=== PATIENT | female | born 1955 | race Caucasian/White ===

== ENCOUNTER 2019-04-04 13:37 | Inpatient (IN) | payer OTHER ==
[~2019-04-04] VITALS: Ht 170.2 cm; Wt 61.3 kg
--- NOTE | 2019-04-04 15:11 | HP ---
ADMIT DATE: 04/04/2019 CHIEF COMPLAINT: Right arm and leg weakness. HISTORY OF PRESENT ILLNESS: This 63-year-old white female was seen in the office on the day of admission after experiencing symptoms in the morning. She woke up and felt fine and leaned over and felt dizzy in a vertiginous type of way and sat down for a while. Shortly after that, she noticed she was having some weakness in both the right arm and right leg, though she was able to move them and feel them but was not able to stand and bear weight. There was no speech deficit, headache, recent TIA symptoms, head injury, or any other symptoms. After about 15-30 minutes, the dizziness started to subside followed shortly after by the weakness in both arm and leg and she feels better at this time. This has never occurred to her prior to this. MEDICATIONS: She takes no meds. PAST SURGICAL HISTORY: Surgically, she has had a right mastectomy, ovarian cystectomy, tubal ligation, and appendectomy. ALLERGIES: NO KNOWN DRUG ALLERGIES ASIDE FROM CODEINE, DARVOCET, AND SULFA. SOCIAL HISTORY: She is about half a pack a day smoker. She drinks only modestly. She is . She is physically active. FAMILY HISTORY: Father has had bladder cancer. Brother has had melena. Otherwise, unremarkable. Mother of a stroke. REVIEW OF SYSTEMS: No other specific complaints recently. OBJECTIVE: ENT: All within normal limits. NECK: Revealed no carotid bruits, nodes, masses, or thyroid enlargement. LUNGS: Clear without tachypnea. CARDIOVASCULAR: Regular rate. No irregular beat, murmur, or tachycardia. BREASTS: Not examined. ABDOMEN: Soft, benign, and nontender. EXTREMITIES: Good pedal and radial pulses. No joint or skin lesions or nail bed findings. NEUROLOGIC: She moves all extremities. She walks normally. Cerebellar function appears normal. Strength in both arms and legs appears to be normal and equal. DTRs are normal. There are no upper motor neuron signs. Speech and mental status was normal as well as gait. RECTAL AND GENITOURINARY: Deferred. ASSESSMENT: Transient ischemic attack, suspect more basal ganglia given the lack of speech deficit. Main risk factor is tobacco use. PLAN: Admit for aspirin therapy, echo, carotid Doppler, CT head, and neurologic consultation. THERESA JAUREGUI MD DR: Rodolfo JOB#: [id number] / [id number]
[2019-04-04 15:25] VITALS: BP 95/64
[2019-04-04] MEDS ORDERED: ASPIRIN 325 MG TABLET PO SCH (16:00)
[2019-04-04 16:19] LABS: BASO # 0.1 x10^3/uL (0.0-0.2); BASO % 1 % (0-3); EOS # 0.1 x10^3/uL (0.0-0.7); EOS % 1 % (0-3); HEMATOCRIT 38.5 % (36.0-47.0); LYMPH # 1.8 x10^3/uL (1.0-4.8); LYMPH % 37 % (24-48); MEAN CORPUSCULAR HEMOGLOBIN 31 pg (25-35); MEAN CORPUSCULAR HGB CONC 34 g/dL (31-37); MEAN CORPUSCULAR VOLUME 92 fL (79-100); MONO # 0.4 x10^3/uL (0.0-1.1); MONO % 8 % (0-9); NEUT # 2.6 x10^3/uL (1.8-7.7); NEUT % 52 % (31-73); PLATELET COUNT 272 x10^3/uL (140-400); RED CELL DISTRIBUTION WIDTH 12.8 % (11.5-14.5); WHITE BLOOD COUNT 4.9 x10^3/uL (4.0-11.0)
[2019-04-04 16:36] LABS: ALBUMIN 3.7 g/dL (3.4-5.0); ALBUMIN/GLOBULIN RATIO 1.1 (1.0-1.7); CALCIUM 8.9 mg/dL (8.5-10.1); CREATININE 0.7 mg/dL (0.6-1.0); GFR 84.5; POTASSIUM 4.2 mmol/L (3.5-5.1); TOTAL BILIRUBIN 0.3 mg/dL (0.2-1.0)
--- NOTE | 2019-04-04 16:39 | RAD ---
CT HEAD WITHOUT CONTRAST 04/04/2019 3:26 PM Indication: Transient ischemic attack right-sided weakness. Comparison: None Procedure: Multidetector CT imaging of the head was performed without the administration of contrast. Findings: There is no evidence of acute intracranial hemorrhage. There is no evidence of acute territorial infarction. Please note that CT is limited for evaluation of acute ischemia. No mass effect or midline shift is identified . The ventricles and basilar cisterns have an appropriate appearance. No abnormal extra-axial fluid collections are seen. No acute osseous changes are identified. Impression: No evidence of acute intracranial abnormality CT DOSING PQRS STATEMENT: One or more of the following individualized dose reduction techniques were utilized for this examination: 1. Automated exposure control 2. Adjustment of the mA and/or kV according to patient size 3. Use of iterative reconstruction technique Electronically signed by: Dick Daniels MD (04/04/2019 4:33 PM) [facility]
--- NOTE | 2019-04-04 18:30 | PDOC2 ---
NEUROLOGY CONSULT Date of Admission Date of Admission DATE: 04/04/19 TIME: 18:19 Reason for Consult Reason for Consult: IMPRESSION: CVA syndrome. Right side weakness on 04/04/19. Dizziness. HLD. Smoking. RECOMMENDATIONS/PLAN: ASA 325 mg daily. Lipitor 20 mg HS. Brain MRI w/o contrast. Carotid A US +Doppler. Echo + Bubble study. Lab: see orders. HISTORY OF THE PRESENT ILLNESS: This is a 63-year-old white female with above medical diseases developed symptoms of right UE and LE weakness on 04/04/19. She was seen in her PCP's clinic and was sent to [facility] for further stroke evaluation. She stated she woke up and felt fine and leaned over and felt dizzy in a vertiginous type of way and sat down for a while. Shortly after that, she noticed she was having some weakness in both the right arm and right leg, though she was able to move them and feel them but was not able to stand and bear weight. After about 15-30 minutes, the dizziness started to subside, and her weakness lasted for > 30 minutes. PAST MEDICAL HISTORY: Please see above. PAST SURGICAL HISTORY: Right mastectomy, ovarian, cystectomy, tubal ligation, and appendectomy. ALLERGIES: CODEINE, DARVOCET, AND SULFA. SOCIAL HISTORY: Lives at home. She smokes half a pack a day for about 30 years. She drinks only occasionally. FAMILY HISTORY: Her father has had bladder cancer. Brother has melenoma. Mother of a stroke. MEDICATIONS: Refer to [facility] REVIEW OF SYSTEMS: Constitutional: No malnutrition, cachexia. Head: No recent traumatic brain or head injury. Skin: No edema, or rash. Ear: No infection. Eyes: No vision loss or color blindness. Nose: No bleeding or purulent discharges. Hearing: No hearing decrease. Neck: No injury. Breast: No history of cancer, masses,or discharges. Cardiac: HLD. Pulmonary: Smoking.. GI: No GI ulcer, GI bleeding. Urinary/genital: UTI. Endocrinologic: No cousin face, craniofacial dysmorphism, polydactyly. Skeletomuscular: No muscular atrophy, deformity. Neurological: see HP. Psychiatric: Denies drug use/abuse. Otherwise, not [id number] review of systems. PHYSICAL EXAMINATION: General appearance is in subacute distress. HEENT: Normocephalic and nontraumatic. Eyes, nose, ears, and throat are unremarkable. Neck is supple. No lymphadenopathy. No crepitus. Cardiovascular: S1, S2, regular rate and rhythm. Pulmonary: Clear to auscultation bilaterally. Abdomen: Bowel sounds are positive. Abdomen is soft, nontender, and nondistended. Extremities: No rash, lesions, or edema. No restriction of range of motion NEUROLOGICAL EXAMINATION: Alert Oriented to time, place and person. PERRL. EOMI. CN: no focal findings. Muscle tone: within normal. Muscle strength: 5 DTR: 2 Plantar reflex: Flexor response bilaterally Gait: not examined in bed. Sensory exam: no abnormal findings. No cerebellar signs elicited. F-T-N test accurate. Current Medications Current Medications Current Medications Aspirin (Francisco Javier Aspirin) 325 mg DAILYWBKFT PO ; Start 04/04/19 at 16:00; Status Cancel Aspirin (Francisco Javier Aspirin) 325 mg DAILYWBKFT PO ; Start 04/05/19 at 08:00 Atorvastatin Calcium (Lipitor) 20 mg QHS PO ; Start 04/04/19 at 21:00 Allergies Allergies: Allergies Coded Allergies Type Severity Reaction Last Updated Verified Sulfa (Sulfonamide Antibiotics) Allergy Intermediate 04/04/19 Yes codeine Allergy Intermediate 04/04/19 Yes propoxyphene Allergy Intermediate 04/04/19 Yes ROS Review of System The patient denies any associated fevers, chills, headache, ear pain, rhinorrhea, sore throat, stiff neck, productive cough, chest pain, shortness of breath, back or flank pain, abdominal pain, nausea, vomiting, diarrhea, constipation, dysuria, rash, numbness, weakness, tingling, incontinence, diffic ulty ambulating, or diaphoresis. Physical Exam Physical Exam General: Well developed, well nourished, no acute distress, well appearing HEENT: Pupils equally round and reactive to light, EOMI, no discharge, normal conjunctiva Neck: Supple, no nuchal rigidity, no JVD, trachea midline, no tenderness Cardiac: RRR, no murmurs, no gallops, no rubs Chest/Lungs: CTAB, no wheeze, no rhonchi, no crackles Abdomen: soft, non-distended, no guarding, no peritoneal signs, non-tender Back: No tenderness Extremities: no edema, pulses intact, non-tender,capillary refill <3 sec bilateral upper and lower extremities, Neuro: Alert and oriented x 4, no focal deficits, normal speech Vitals Vitals: Vital Signs Date Time Temp Pulse Resp B/P (MAP) Pulse Ox O2 Delivery O2 Flow Rate FiO2 04/04/19 16:00 Room Air 04/04/19 15:25 98.2 78 16 95/64 (74) 99 98.2 Labs Labs Laboratory Tests Test 04/04/19 16:00 White Blood Count 4.9 x10^3/uL (4.0-11.0) Red Blood Count 4.20 x10^6/uL (3.50-5.40) Hemoglobin 13.0 g/dL (12.0-15.5) Hematocrit 38.5 % (36.0-47.0) Mean Corpuscular Volume 92 fL (79-100) Mean Corpuscular Hemoglobin 31 pg (25-35) Mean Corpuscular Hemoglobin Concent 34 g/dL (31-37) Red Cell Distribution Width 12.8 % (11.5-14.5) Platelet Count 272 x10^3/uL (140-400) Neutrophils (%) (Auto) 52 % (31-73) Lymphocytes (%) (Auto) 37 % (24-48) Monocytes (%) (Auto) 8 % (0-9) Eosinophils (%) (Auto) 1 % (0-3) Basophils (%) (Auto) 1 % (0-3) Neutrophils # (Auto) 2.6 x10^3/uL (1.8-7.7) Lymphocytes # (Auto) 1.8 x10^3/uL (1.0-4.8) Monocytes # (Auto) 0.4 x10^3/uL (0.0-1.1) Eosinophils # (Auto) 0.1 x10^3/uL (0.0-0.7) Basophils # (Auto) 0.1 x10^3/uL (0.0-0.2) Erythrocyte Sedimentation Rate 0 (0-25) Sodium Level 140 mmol/L (136-145) Potassium Level 4.2 mmol/L (3.5-5.1) Chloride Level 103 mmol/L (98-107) Carbon Dioxide Level 31 mmol/L (21-32) Anion Gap 6 (6-14) Blood Urea Nitrogen 12 mg/dL (7-20) Creatinine 0.7 mg/dL (0.6-1.0) Estimated GFR (Cockcroft-Gault) 84.5 BUN/Creatinine Ratio 17 (6-20) Glucose Level 133 mg/dL (70-99) Calcium Level 8.9 mg/dL (8.5-10.1) Total Bilirubin 0.3 mg/dL (0.2-1.0) Aspartate Amino Transf (AST/SGOT) 16 U/L (15-37) Alanine Aminotransferase (ALT/SGPT) 16 U/L (14-59) Alkaline Phosphatase 73 U/L (46-116) Total Protein 7.0 g/dL (6.4-8.2) Albumin 3.7 g/dL (3.4-5.0) Albumin/Globulin Ratio 1.1 (1.0-1.7) Triglycerides Level 92 mg/dL (0-150) Cholesterol Level 215 mg/dL (0-200) LDL Cholesterol, Calculated 143 mg/dL (0-100) VLDL Cholesterol, Calculated 18 mg/dL (0-40) Non-HDL Cholesterol Calculated 161 mg/dL (0-129) HDL Cholesterol 54 mg/dL (40-60) Cholesterol/HDL Ratio 4.0 Thyroid Stimulating Hormone (TSH) 0.959 uIU/mL (0.358-3.74) Laboratory Tests Test 04/04/19 16:00 White Blood Count 4.9 x10^3/uL (4.0-11.0) Red Blood Count 4.20 x10^6/uL (3.50-5.40) Hemoglobin 13.0 g/dL (12.0-15.5) Hematocrit 38.5 % (36.0-47.0) Mean Corpuscular Volume 92 fL (79-100) Mean Corpuscular Hemoglobin 31 pg (25-35) Mean Corpuscular Hemoglobin Concent 34 g/dL (31-37) Red Cell Distribution Width 12.8 % (11.5-14.5) Platelet Count 272 x10^3/uL (140-400) Neutrophils (%) (Auto) 52 % (31-73) Lymphocytes (%) (Auto) 37 % (24-48) Monocytes (%) (Auto) 8 % (0-9) Eosinophils (%) (Auto) 1 % (0-3) Basophils (%) (Auto) 1 % (0-3) Neutrophils # (Auto) 2.6 x10^3/uL (1.8-7.7) Lymphocytes # (Auto) 1.8 x10^3/uL (1.0-4.8) Monocytes # (Auto) 0.4 x10^3/uL (0.0-1.1) Eosinophils # (Auto) 0.1 x10^3/uL (0.0-0.7) Basophils # (Auto) 0.1 x10^3/uL (0.0-0.2) Erythrocyte Sedimentation Rate 0 (0-25) Sodium Level 140 mmol/L (136-145) Potassium Level 4.2 mmol/L (3.5-5.1) Chloride Level 103 mmol/L (98-107) Carbon Dioxide Level 31 mmol/L (21-32) Anion Gap 6 (6-14) Blood Urea Nitrogen 12 mg/dL (7-20) Creatinine 0.7 mg/dL (0.6-1.0) Estimated GFR (Cockcroft-Gault) 84.5 BUN/Creatinine Ratio 17 (6-20) Glucose Level 133 mg/dL (70-99) Calcium Level 8.9 mg/dL (8.5-10.1) Total Bilirubin 0.3 mg/dL (0.2-1.0) Aspartate Amino Transf (AST/SGOT) 16 U/L (15-37) Alanine Aminotransferase (ALT/SGPT) 16 U/L (14-59) Alkaline Phosphatase 73 U/L (46-116) Total Protein 7.0 g/dL (6.4-8.2) Albumin 3.7 g/dL (3.4-5.0) Albumin/Globulin Ratio 1.1 (1.0-1.7) Triglycerides Level 92 mg/dL (0-150) Cholesterol Level 215 mg/dL (0-200) LDL Cholesterol, Calculated 143 mg/dL (0-100) VLDL Cholesterol, Calculated 18 mg/dL (0-40) Non-HDL Cholesterol Calculated 161 mg/dL (0-129) HDL Cholesterol 54 mg/dL (40-60) Cholesterol/HDL Ratio 4.0 Thyroid Stimulating Hormone (TSH) 0.959 uIU/mL (0.358-3.74) JESSICA AMARO MD Apr 04, 2019 18:30
[2019-04-04 19:15] VITALS: BP 111/66
[2019-04-04] MEDS ORDERED: ATORVASTATIN CALCIUM 20 MG TABLET PO SCH (21:00)
[2019-04-04 23:15] VITALS: BP 106/64
[2019-04-05] MEDS ORDERED: ACETAMINOPHEN 500 MG TABLET PO PRN (00:30)
[2019-04-05 03:15] VITALS: BP 112/71
[2019-04-05 05:09] LABS: BARBITURATES NEG (NEG); BENZODIAZEPINES NEG (NEG); CANNABINOIDS NEG (NEG); COCAINE NEG (NEG); METHADONE NEG (NEG); OPIATES NEG (NEG); PHENCYCLIDINE NEG (NEG)
--- NOTE | 2019-04-05 05:09 | RAD ---
DOPPLER CAROTID BILAT Clinical Indication: TIA.. Procedure: Pulsed wave and color-flow duplex imaging was utilized to evaluate the extracranial carotid arteries. Comparison: None. Findings: RIGHT SIDE: Mild atherosclerotic plaque on fleming-scale images. Distal CCA peak systolic velocity 81 cm/sec. ICA peak systolic velocity 64 cm/sec. The right ICA/CCA ratio is 0.8. Flow within the right vertebral artery and right ECA is directed antegrade. LEFT SIDE: Mild atherosclerotic plaque on fleming-scale images. Distal CCA peak systolic velocity 76 cm/sec. ICA peak systolic velocity 60 cm/sec. The left ICA/CCA ratio is 0.8. Flow within the left vertebral artery and left ECA is directed antegrade. Carotid legend: CCA = common carotid artery ICA = internal carotid artery ECA = external carotid artery IMPRESSION: Less than 50 percent stenosis bilaterally. Electronically signed by: Omar Nguyen DO (04/05/2019 5:06 AM) [id number]
[2019-04-05 05:13] LABS: AMPHETAMINE/METHAMPHETAMINE NEG (NEG)
[2019-04-05 07:00] VITALS: BP 110/63
[2019-04-05] MEDS ORDERED: ASPIRIN 325 MG TABLET PO SCH (08:00)
--- NOTE | 2019-04-05 08:10 | PDOC ---
Provider Note Provider Note [id number] THERESA JAUREGUI MD Apr 05, 2019 08:10
--- NOTE | 2019-04-05 08:27 | DS ---
DATE OF DISCHARGE: 04/05/2019 HOSPITAL SUMMARY: This is a 63-year-old white female who came into the office on the day of admission with dizziness associated with 30 minutes or so of right arm and right leg weakness without speech deficit. CBC, sed rate and chemistry profile unremarkable except for slightly elevated blood sugar of 133. Cholesterol was 215, LDL 143 and HDL 54. TSH was normal. Urine drug screen was negative. Carotid Doppler studies and CT scan of the head were normal. MRI of the head and echocardiogram are pending at this time. She was treated as a TIA with aspirin and atorvastatin was started as well and Dr. Montero saw in consultation. She will be discharged after the MRI report proved to be unremarkable and followed up as an outpatient. FINAL DIAGNOSES: 1. Transient ischemic attack. 2. Hyperlipidemia, mild. 3. Chronic tobacco abuse. 4. Hyperglycemia. OPERATIONS, PROCEDURES, COMPLICATIONS: None. CONSULTATIONS: Dr. Montero. DISPOSITION: Aspirin 81 mg daily and atorvastatin 20 mg daily. Complete avoidance of tobacco was encouraged. Regular high fiber, low cholesterol diet. Office followup in 1 week and we will follow her statin response and any further symptoms required. We will do a hemoglobin A1c regarding mildly elevated blood sugar, but highly unlikely this patient is even prediabetic. THERESA JAUREGUI MD DR: [place]/tyrone JOB#: [id number] / [id number]
--- NOTE | 2019-04-05 09:46 | CARD ---
MR#: [id number] Date of Study: 04/05/2019 Ordering Physician: THERESA JAUREGUI, Referring Physician: THERESA JAUREGUI Tech: Cheryl Mckeon RDCS APPROVED REPORT EXAM: Two-dimensional and M-mode echocardiogram with Doppler and color Doppler. Other Information Quality : AverageHR: 55bpm Rhythm : Bradycardia INDICATION CVA/TIA 2D DIMENSIONS Left Atrium(2D)3.2 (1.6-4.0cm)IVSd0.8 (0.7-1.1cm) Aortic Root(2D)2.8 (2.0-3.7cm)LVDd4.5 (3.9-5.9cm) LVOT Diameter1.9 (1.8-2.4cm)PWd0.9 (0.7-1.1cm) IVSs0.8 (0.8-1.2cm)LVDs3.2 (2.5-4.0cm) FS (%) 28.6 %PWs1.2 (0.8-1.2cm) SV51.8 mlLVEF(%)55.3 (>50%) Aortic Valve AoV Peak Tad.107.6cm/sAoV VTI21.6cm AO Peak GR.4.6mmHgLVOT Peak Tad.95.8cm/s LVOT VTI 21.28cmAO Mean GR.2mmHg SUKUMAR (VMAX)1.75ob6ELH (VTI)2.79cm2 Mitral Valve MV E Kulnvuns46.6cm/sMV DECEL [id number] MV A Voddkvku51.7cm/sMV IVN85ud E/A Ratio1.1MVA (PHT)3.27cm2 Tricuspid Valve TR P. Fujrnezl497ay/sRAP [id number] TR Peak Gr.74ysRfWERL29suMf LEFT VENTRICLE The left ventricle is normal size. There is normal left ventricular wall thickness. The left ventricu lar systolic function is normal and the ejection fraction is within normal range. The Ejection Fracti on is 55-60%. There is normal LV segmental wall motion. Transmitral Doppler flow pattern is Grade II- pseudonormal filling dynamics. RIGHT VENTRICLE The right ventricle is normal size. There is normal right ventricular wall thickness. The right ventr icular systolic function is normal. ATRIA The left atrium size is normal. The right atrium size is normal. The interatrial septum is intact wit h no evidence for an atrial septal defect or patent foramen ovale as noted on 2-D or Doppler imaging. AORTIC VALVE The aortic valve is normal in structure and function. The aortic valve is trileaflet. Doppler and Col or Flow revealed no significant aortic regurgitation. There is no significant aortic valvular stenosi s. There is no aortic valvular vegetation. MITRAL VALVE The mitral valve is normal in structure and function. There is no evidence of mitral valve prolapse. There is no mitral valve stenosis. Doppler and Color-flow revealed trace mitral regurgitation. TRICUSPID VALVE The tricuspid valve is normal in structure and function. Doppler and Color Flow revealed trace tricus pid regurgitation. The PA pressure was estimated at 24 mmHg. There is no tricuspid valve prolapse or vegetation. There is no tricuspid valve stenosis. PULMONIC VALVE The pulmonic valve is not well visualized. GREAT VESSELS The aortic root is normal in size. The ascending aorta is normal in size. The IVC is normal in size a nd collapses >50% with inspiration. PERICARDIAL EFFUSION There is no evidence of significant pericardial effusion. Critical Notification Critical Value: No <Conclusion> The left ventricle is normal size. The left ventricular systolic function is normal and the ejection fraction is within normal range. The Ejection Fraction is 55-60%. There is normal left ventricular wall thickness. There is no significant aortic valvular stenosis. Doppler and Color Flow revealed no significant aortic regurgitation. Doppler and Color-flow revealed trace mitral regurgitation. Doppler and Color Flow revealed trace tricuspid regurgitation. The PA pressure was estimated at 24 mmHg. Signed by : Emeka Adamson MD Electronically Approved : 04/05/2019 09:45:56
--- NOTE | 2019-04-05 10:28 | NUR ---
SS following for discharge planning. SS reviewed pt chart. Pt is from home with spouse and is currently on room air. SS will continue to follow for discharge planning.
[2019-04-05 11:00] VITALS: BP 98/53
--- NOTE | 2019-04-05 14:03 | PDOC ---
PROGRESS NOTES Assessment Assessment CVA syndrome. Right side weakness on 04/04/19. Dizziness. HLD. Smoking. No signs of acute large vessel stroke. RECOMMENDATIONS/PLAN: Continue ASA 325 mg daily. Continue Lipitor 20 mg HS. Brain MRI w/o contrast, pending reports. Smoking cessation. FU with PCP. Discussed with her at bedside on 04/05/19. HISTORY OF THE PRESENT ILLNESS: This is a 63-year-old white female with above medical diseases developed symptoms of right UE and LE weakness on 04/04/19. She was seen in her PCP's clinic and was sent to [facility] for further stroke evaluation. She stated she woke up and felt fine and leaned over and felt dizzy in a vertiginous type of way and sat down for a while. Shortly after that, she noticed she was having some weakness in both the right arm and right leg, though she was able to move them and feel them but was not able to stand and bear weight. After about 15-30 minutes, the dizziness started to subside, and her weakness lasted for > 30 minutes, then resolved. PAST MEDICAL HISTORY: Please see above. PAST SURGICAL HISTORY: Right mastectomy, ovarian, cystectomy, tubal ligation, and appendectomy. ALLERGIES: CODEINE, DARVOCET, AND SULFA. SOCIAL HISTORY: Lives at home. She smokes half a pack a day for about 30 years. She drinks only occasionally. FAMILY HISTORY: Her father has had bladder cancer. Brother has melenoma. Mother of a stroke. MEDICATIONS: Refer to MAR REVIEW OF SYSTEMS: Constitutional: No malnutrition, cachexia. Head: No recent traumatic brain or head injury. Skin: No edema, or rash. Ear: No infection. Eyes: No vision loss or color blindness. Nose: No bleeding or purulent discharges. Hearing: No hearing decrease. Neck: No injury. Breast: No history of cancer, masses,or discharges. Cardiac: HLD. Pulmonary: Smoking.. GI: No GI ulcer, GI bleeding. Urinary/genital: UTI. Endocrinologic: No cousin face, craniofacial dysmorphism, polydactyly. Skeletomuscular: No muscular atrophy, deformity. Neurological: see HP. Psychiatric: Denies drug use/abuse. Otherwise, not [id number] review of systems. PHYSICAL EXAMINATION: General appearance is in no acute distress. HEENT: Normocephalic and nontraumatic. Eyes, nose, ears, and throat are unremarkable. Neck is supple. No lymphadenopathy. No crepitus. Cardiovascular: S1, S2, regular rate and rhythm. Pulmonary: Clear to auscultation bilaterally. Abdomen: Bowel sounds are positive. Abdomen is soft, nontender, and nondistended. Extremities: No rash, lesions, or edema. No restriction of range of motion NEUROLOGICAL EXAMINATION: Alert Oriented to time, place and person. PERRL. EOMI. CN: no focal findings. Muscle tone: within normal. Muscle strength: 5 DTR: 2 Plantar reflex: Flexor response bilaterally Gait: At her baseline normal. Sensory exam: no abnormal findings. No cerebellar signs elicited. F-T-N test accurate. Objective Objective Vital Signs Date Time Temp Pulse Resp B/P (MAP) Pulse Ox O2 Delivery O2 Flow Rate FiO2 04/05/19 11:00 97.8 86 18 98/53 (68) 97 Room Air 97.8 Intake and Output 04/05/19 07:00 Intake Total 0 ml Output Total 200 ml Balance -200 ml Intake Oral 0 ml Output Urine Total 200 ml Vitals Signs Vitals VS - Last 72 Hours, by Label Date Time Temp Pulse Resp B/P (MAP) Pulse Ox O2 Delivery O2 Flow Rate FiO2 04/05/19 11:00 97.8 86 18 98/53 (68) 97 Room Air 97.8 04/05/19 08:00 Room Air 04/05/19 07:00 98.2 62 16 110/63 (79) 97 Room Air 98.2 04/05/19 03:15 98.3 53 16 112/71 (85) 98 Room Air 98.3 04/04/19 23:15 98.1 66 16 106/64 (78) 97 Room Air 98.1 04/04/19 20:00 Room Air 04/04/19 19:15 98.2 65 17 111/66 (81) 96 Room Air 98.2 04/04/19 16:00 Room Air 04/04/19 15:25 98.2 78 16 95/64 (74) 99 Room Air 98.2 Laboratory Laboratory Laboratory Tests Test 04/04/19 16:00 04/05/19 03:12 White Blood Count 4.9 x10^3/uL (4.0-11.0) Red Blood Count 4.20 x10^6/uL (3.50-5.40) Hemoglobin 13.0 g/dL (12.0-15.5) Hematocrit 38.5 % (36.0-47.0) Mean Corpuscular Volume 92 fL (79-100) Mean Corpuscular Hemoglobin 31 pg (25-35) Mean Corpuscular Hemoglobin Concent 34 g/dL (31-37) Red Cell Distribution Width 12.8 % (11.5-14.5) Platelet Count 272 x10^3/uL (140-400) Neutrophils (%) (Auto) 52 % (31-73) Lymphocytes (%) (Auto) 37 % (24-48) Monocytes (%) (Auto) 8 % (0-9) Eosinophils (%) (Auto) 1 % (0-3) Basophils (%) (Auto) 1 % (0-3) Neutrophils # (Auto) 2.6 x10^3/uL (1.8-7.7) Lymphocytes # (Auto) 1.8 x10^3/uL (1.0-4.8) Monocytes # (Auto) 0.4 x10^3/uL (0.0-1.1) Eosinophils # (Auto) 0.1 x10^3/uL (0.0-0.7) Basophils # (Auto) 0.1 x10^3/uL (0.0-0.2) Erythrocyte Sedimentation Rate 0 (0-25) Sodium Level 140 mmol/L (136-145) Potassium Level 4.2 mmol/L (3.5-5.1) Chloride Level 103 mmol/L (98-107) Carbon Dioxide Level 31 mmol/L (21-32) Anion Gap 6 (6-14) Blood Urea Nitrogen 12 mg/dL (7-20) Creatinine 0.7 mg/dL (0.6-1.0) Estimated GFR (Cockcroft-Gault) 84.5 BUN/Creatinine Ratio 17 (6-20) Glucose Level 133 mg/dL (70-99) Calcium Level 8.9 mg/dL (8.5-10.1) Total Bilirubin 0.3 mg/dL (0.2-1.0) Aspartate Amino Transf (AST/SGOT) 16 U/L (15-37) Alanine Aminotransferase (ALT/SGPT) 16 U/L (14-59) Alkaline Phosphatase 73 U/L (46-116) Total Protein 7.0 g/dL (6.4-8.2) Albumin 3.7 g/dL (3.4-5.0) Albumin/Globulin Ratio 1.1 (1.0-1.7) Triglycerides Level 92 mg/dL (0-150) Cholesterol Level 215 mg/dL (0-200) LDL Cholesterol, Calculated 143 mg/dL (0-100) VLDL Cholesterol, Calculated 18 mg/dL (0-40) Non-HDL Cholesterol Calculated 161 mg/dL (0-129) HDL Cholesterol 54 mg/dL (40-60) Cholesterol/HDL Ratio 4.0 Thyroid Stimulating Hormone (TSH) 0.959 uIU/mL (0.358-3.74) Urine Opiates Screen Neg (NEG) Urine Methadone Screen Neg (NEG) Urine Barbiturates Neg (NEG) Urine Phencyclidine Screen Neg (NEG) Urine Amphetamine/Methamphetamine Neg (NEG) Urine Benzodiazepines Screen Neg (NEG) Urine Cocaine Screen Neg (NEG) Urine Cannabinoids Screen Neg (NEG) Urine Ethyl Alcohol Neg (NEG) Medication Medications Current Medications Acetaminophen (Tylenol) 500 mg PRN Q6HRS PRN PO MILD PAIN / TEMP Last administered on 04/05/19at 00:40; Start 04/05/19 at 00:30 Aspirin (Francisco Javier Aspirin) 325 mg DAILYWBKFT PO ; Start 04/04/19 at 16:00; Status Cancel Aspirin (Francisco Javier Aspirin) 325 mg DAILYWBKFT PO Last administered on 04/05/19at 09:52; Start 04/05/19 at 08:00 Atorvastatin Calcium (Lipitor) 20 mg QHS PO Last administered on 04/04/19at 20:56; Start 04/04/19 at 21:00 Comment Review of Relevant I have reviewed the following items gutierrez (where applicable) has been applied. JESSICA AMARO MD Apr 05, 2019 14:03
--- NOTE | 2019-04-05 14:46 | RAD ---
EXAM: Brain MRI without contrast. HISTORY: Right-sided weakness. TECHNIQUE: Multiplanar, multisequence magnetic resonance imaging of the brain was performed without contrast. COMPARISON: Head CT obtained on the same date. FINDINGS: There is no restricted diffusion to suggest acute or subacute infarction. There is no mass effect or midline shift. There is no hydrocephalus. There are few scattered foci of T2/FLAIR hyperintensity within the cerebral white matter. The orbits are unremarkable. There is minimal right maxillary sinus mucosal thickening. The mastoid air cells are clear. There are normal flow voids in the cerebral vessels. No suspicious calvarial lesion is seen. IMPRESSION: 1. No acute intracranial finding. 2. Few tiny foci of signal change within the cerebral white matter, likely due to chronic small vessel disease. Electronically signed by: Selina Mistry MD (04/05/2019 2:43 PM) [id number]
[2019-04-05 15:00] VITALS: BP 110/64
--- NOTE | 2019-04-05 16:07 | NUR ---
Pt discharged home with . Discharge instructions reviewed and verbalized understanding.
== END 2019-04-05 16:07 | disposition home or self-care (01) | DRG 69 ==
LOC: 6 SOUTH 14:50
PROVIDERS: ADMIT Family Medicine; ATTEND Family Medicine
DX: G45.9 Transient cerebral ischemic attack, unspecified (principal); F17.210 Nicotine dependence, cigarettes, uncomplicated; E78.5 Hyperlipidemia, unspecified; Z90.11 Acquired absence of right breast and nipple; Z98.51 Tubal ligation status; Z90.49 Acquired absence of other specified parts of digestive tract; Z88.5 Allergy status to narcotic agent; Z88.2 Allergy status to sulfonamides; Z88.8 Allergy status to other drugs, medicaments and biological substances; Z82.3 Family history of stroke; Z80.52 Family history of malignant neoplasm of bladder; Z79.899 Other long term (current) drug therapy; Z79.82 Long term (current) use of aspirin; R73.9 Hyperglycemia, unspecified
CPT/HCPCS: 36415; 70450; 70551; 80053; 80061; 80307; 84443; 85025; 85651; 93306; 93880; G0378